=== PATIENT | male | born 1930 | race Caucasian/White ===

== ENCOUNTER → 2016-07-27 | Outpatient (CLI) | payer MEDICARE ==
[2015-06-14 14:20] VITALS: BP 145/53
[~2016-07-27] MED LIST: BARIUM SULFATE 40% (APPLE) 148 GM PWD. PO ONE; Bisacodyl PR; DIGO125T PO; DONE5TAB7 PO; GLIM4TAB2 PO; METO25TA4 PO; PROAIR HFA8.5 GM IH; TAMS0.4C97 PO; WARF1TAB7 PO; [UNRECOGNIZED DRUG - CODE] PR
--- NOTE | 2016-07-27 14:11 | RAD ---
EXAM: Video swallow evaluation. HISTORY: Dysphagia. TECHNIQUE: Fluoroscopic imaging was performed in coordination with the department of speech pathology during the oral administration of barium contrast of varying consistencies. 0 fluoroscopic images were obtained. The total fluoroscopy time was 0.7 minutes. COMPARISON: 06/10/2015. FINDINGS: There is nodular opacity in the vallecular region similar compared to the prior study. There is silent helena aspiration with thin and nectar contrast and residual contrast within swallowing pudding consistency. Due to the degree of aspiration, limited imaging was performed. IMPRESSION: 1. Persistent silent aspiration with thin and nectar barium consistency as well as residual following swallowing of pudding consistency. This is similar compared to a prior study. 2. Prominent density within the region of the valleculae, consistent with calcification demonstrated on a CT dated 06/11/2015. 3. Please refer to the separate report by the department of speech pathology for clinical recommendations.
== END | disposition home or self-care (01) ==
LOC: RAD 13:34
PROVIDERS: ATTEND Internal Medicine
DX: R13.10 Dysphagia, unspecified (principal)
CPT/HCPCS: 74230; 92526; 92611; G8996; G8997; G8998